=== PATIENT | female | born 1960 | race Hispanic/Latino ===

== ENCOUNTER 2018-09-18 11:49 | Outpatient (CLI) | payer OTHER | END 2018-09-18 11:50 | disposition home or self-care (01) | LOC: LABHHL 11:49 | PROVIDERS: ATTEND Surgery | DX: C50.911 Malignant neoplasm of unspecified site of right female breast (principal); N63.12 Unspecified lump in the right breast, upper inner quadrant | CPT/HCPCS: 88184; 88185; 88305 ==

== ENCOUNTER 2018-10-13 14:13 | Outpatient (CLI) | payer MEDICARE ==
--- NOTE | 2018-10-13 15:26 | Mammography Report ---
LEFT DIGITAL DIAGNOSTIC MAMMOGRAM with CAD: 10/13/18 14:13:00 CLINICAL: History of left breast cancer status post left partial mastectomy and status post right partial mastectomy with radiation therapy. Recent biopsy proven skin recurrence in the right breast. COMPARISON:01/07/12 FINDINGS: The breast is heterogeneously dense, which may obscure small masses.Inner posterior postsurgical scar with benign fat necrosis at the scar. Moderate skin thickening of the breast. No mass, suspicious architectural distortion or suspicious calcifications. IMPRESSION: No mammographic evidence of malignancy.Benign postsurgical scar and nonspecific skin thickening. BI-RADS CATEGORY: 2 - - Benign RECOMMENDATION: Routine mammographic screening. ACR BI-RADS MAMMOGRAPHIC CODES: 0 = Needs additional imaging evaluation; 1 = Negative; 2 = Benign; 3 = Probably benign; 4 = Suspicious; 5 = Malignant; 6 = Known biopsy-proven malignancy COMMENT: 1. Dense breast tissue, i.e., adenosis, fibrocystic changes, etc., may obscure an underlying neoplasm. 2. Approximately 10% of cancers are not detected with mammography. 3. A negative mammography report should not delay biopsy if a clinically suspicious mass is present. COMMENT: Patient follow-up letters are generated by our [employer] application.
== END 2018-10-13 14:14 | disposition home or self-care (01) ==
LOC: SPVWC 14:13
PROVIDERS: ATTEND Surgery
DX: C50.311 Malignant neoplasm of lower-inner quadrant of right female breast (principal); Z98.890 Other specified postprocedural states

== ENCOUNTER 2018-10-26 08:26 | Outpatient (CLI) | payer MEDICARE ==
--- NOTE | 2018-10-26 11:07 | Ultrasound Report ---
ABDOMINAL ULTRASOUND: 10/26/18 08:26:00 CLINICAL: Recurrent right breast cancer and abnormal liver on CT. FINDINGS: High-resolution ultrasound demonstrates normal size liver with moderate diffuse increased echogenicity. No liver mass. Normal hepatic vasculature and inferior vena cava. The gallbladder is normally distended. Sludge in the gallbladder neck but no stones. The gallbladder wall measures 1.8 mm. Normal bile ducts. The common bile duct measures 4.7 mm diameter. The pancreas is well imaged and normal Normal abdominal aorta. A normal spleen measures 10.0 cm maximum diameter. Normal kidneys with normal echogenicity and normal non-dilated renal collecting systems and ureters. The kidneys are relatively small but otherwise normal. The right kidney measures 7.7 x 4.1 x 5.2 m and the left kidney measures 9.7 x 4.9 x 3.6 cm. Normal renal echogenicity. No renal mass or calculus. No ascites or mass. IMPRESSION: 1. Hepatic steatosis. 2. No evidence of hepatic metastasis. 3. Gallbladder sludge but no cholelithiasis.
== END 2018-10-26 08:27 | disposition home or self-care (01) ==
LOC: SPVWC 08:26
PROVIDERS: ATTEND Surgery
DX: K76.0 Fatty (change of) liver, not elsewhere classified (principal); K83.9 Disease of biliary tract, unspecified; C50.211 Malignant neoplasm of upper-inner quadrant of right female breast
CPT/HCPCS: 76700

== ENCOUNTER 2018-10-26 14:48 | Outpatient (CLI) | payer MEDICARE | END 2018-10-26 14:49 | disposition home or self-care (01) | LOC: LABHHL 14:48 | PROVIDERS: ATTEND Surgery | DX: D23.9 Other benign neoplasm of skin, unspecified (principal); L90.5 Scar conditions and fibrosis of skin | CPT/HCPCS: 88305; 88342 ==

== ENCOUNTER 2018-11-16 08:27 | Observation (INO) | payer MEDICARE ==
[~2018-11-16 08:27] MED LIST: ANCEF/STERILE WATER 2 GM/20 ML 2 GM/20 ML SYRINGE IV NR
[2018-11-16] MEDS ORDERED: SUBLIMAZE IV ONE (10:23)
[2018-11-16] MEDS ORDERED: SUBLIMAZE ONE ×2 (10:46→12:39)
[2018-11-16] MEDS ORDERED: DIPRIVAN 10 MG/ML IV ONE (10:46)
--- NOTE | 2018-11-16 10:48 | Short Stay Summary ---
Short Stay Documentation Date of service: 11/16/18 - History H&P: obtained from office - Allergies and Medications Current Medications: Allergies iodine Allergy (Verified 11/13/18 18:36) Hives midazolam Allergy (Verified 11/13/18 18:36) Makes her act crazy and very hyper opposite affect Home Medications Medication Instructions Recorded Confirmed Last Taken Type ALBUTEROL Inhaler (OR & NICU) 2 puff INHALATION Q6H PRN 11/13/18 11/13/18 Unknown History [ProAir HFA Inhaler] Budesoni/Formotero 160-4.5(Nf) 2 puff IH BID 11/13/18 11/13/18 Unknown History [Symbicort 160-4.5 (Nf)] Buprenorphine [Butrans] 1 patch TRANSDERMA QWEEK 11/13/18 11/13/18 Unknown History Cefdinir 300 mg PO BID PRN 11/13/18 11/13/18 Unknown History Gabapentin [Neurontin] 400 mg PO TID PRN 11/13/18 11/13/18 Unknown History Gamunex-C 40 Gram/400 ml Vial 6 g IV 2XW 11/13/18 11/13/18 Unknown History Levothyroxine Sodium [Synthroid] 100 mcg PO QAM 11/13/18 11/13/18 Unknown History Metoprolol Xl [Metoprolol 50 mg PO DAILY 11/13/18 11/13/18 Unknown History SUCCINATE ER TAB] Oxycodone HCl/Acetaminophen 1 tab PO Q6H PRN 11/13/18 11/13/18 Unknown History Promethazine [Phenergan TAB] 25 mg PO BID PRN 11/13/18 11/13/18 Unknown History QUEtiapine [SEROquel] 25 mg PO DAILY 11/13/18 11/13/18 Unknown History Tiotropium [Spiriva] 18 mcg IH QDAY 11/13/18 11/13/18 Unknown History Topiramate [Topamax TAB] 50 mg PO BID PRN 11/13/18 11/13/18 Unknown History Warfarin Sodium 0.5 tab PO DAILY 11/13/18 11/13/18 Unknown History Active Medications Cefazolin Sodium (Ancef/Sterile Water 2 Gm/20 Ml) 2 gm in 20 mls @ 80 mls/hr IV PREOP NR; Protocol Stop: 11/16/18 23:31 Lactated Ringer's (Lactated Ringers) 1,000 mls @ 100 mls/hr IV DIRECT ARJUN Midazolam HCl (Versed) 2 mg IV PREOP NR Stop: 11/16/18 23:59 Scopolamine (Transderm-Scop) 1 each TD PREOP NR Stop: 11/19/18 10:59 - Brief post op/procedure progress note Date of procedure: 11/16/18 Pre-op diagnosis: Right breast cancer of the upper inner quadrant Post-op diagnosis: same Procedure: Bilateral mastectomy with attempted right SLNB Anesthesia: GETA Findings: Right breast clips present in specimen Surgeon: SARAH MATIAS Estimated blood loss: minimal Pathology: list (bilateral mastectomy; rigth SLNB) Specimen disposition: to lab Condition: stable - Disposition Condition at discharge: Good Disposition: DC/TX-02 SHRT-TRM GEN HOSP IP Short Stay Discharge Plan Activity: other (no heavy lifting) Diet: regular Wound: keep clean and dry Follow up with: ROBLES HARRELL MD [Primary Care Provider] - 7 Days SARAH MATIAS MD [Staff Physician] - 7 Days
[2018-11-16] MEDS ORDERED: PERCOCET 5/325 PO PRN (10:52)
[2018-11-16] MEDS ORDERED: BENADRYL PO PRN (10:52)
[2018-11-16] MEDS ORDERED: REGLAN PO PRN (10:52)
[2018-11-16] MEDS ORDERED: SODIUM CHLORIDE FLUSH SYRINGE 10 ML IV PRN (10:52)
[2018-11-16] MEDS ORDERED: TYLENOL PO PRN (10:52)
--- NOTE | 2018-11-16 10:52 | Operative Report ---
Operative Report Operative Report: Date of Service: November 16, 2018 Preoperative diagnosis: Right breast cancer of the upper outer and upper inner quadrants and NAC Postoperative diagnosis: Same Procedure: Right total mastectomy with attempted sentinel lymph node biopsy and left total mastectomy Surgeon: Luzma Osuna M.D. Anesthesia: Gen. Findings: Right breast clips present within right total mastectomy. No right axillary SLNs present Complications: None Drains: Two19 Fr CARLA Estimated blood loss: Minimal Disposition: PACU in good condition Indications for operative procedure: This is a 58-year-old lady with a personal history of bilateral breast cancer with newly diagnosed right breast cancer of the upper outer and upper inner quadrant and NAC; IDCA [id number] ER/MO positive (skin of the 2:00 position, breast cancer mass of NAC and 11:00 positoin 7 cm from the nipple). She has a history of bilateral breast cancer, right breast cancer in 1998 s/p right lumpectomy with ALND followed by XRT and adjuvant chemotherapy. She has a history of left breast cancer in 2012 s/p left partial mastectomy post adjuvant radation. Recommendations were to proceed with a right mastectomy given history of right breast cancer with adjuvant XRT. Patient declined PRS. She wished to proceed with the above procedure as well as a proph ylatic left mastectomy. Procedure in detail: Anesthesia placed bilateral pectoral muscle block prior to going to the operating room. The patient was taken to the operating room and was placed supine. Gen. anesthesia was administered. The right nipple was injected with radioisotope and 1 cc of methylene blue dye with 1 cc of saline. Bilateral breasts and axillas was prepped and draped in the normal sterile operative fashion. Timeout was performed. Typical mastectomy incision marking was made, right mastectomy including known cancer location. Attention was taken towards the left breast first. A skin incision was made with a 10 blade knife and dissection taken down to the subcutaneous tissues. First began raising of the superior flap to the level of the clavicle superiorly and posteriorly to the pectoralis muscle. Followed by raising of the medial flap to the level of the sternum and posteriorly to the pectoralis muscle. Followed by raising of the lateral flap to the level of the latissimus dorsi muscle and taken down posteriorly. Then proceeded with raising of the inferior flap to the level of the inframammary fold taken posterior to the pectoralis muscle. The mastectomy/breast was removed from the pectoralis muscle without incident. Mastectomy was noted for typical findings post XRT. The specimen was appropriately marked and sent to pathology. Hemostasis was noted. The chest wall was irrigated and suctioned. Hemostasis was obtained. One 19 [place] CARLA drain was placed. The subcutaneous tissues were closed using an interrupted 3-0 Vicryl followed by closing of the skin using a running 4-0 Monocryl and dermabond. The left port was noted and unharmed. Fibrotic tissue was noted from prior surgery and XRT. Attention was then taken towards the right breast. A gamma probe was inserted into the axilla to identify the sentinel lymph node location with no uptake noted. A skin incision was made with a 10 blade knife and dissection taken down to the subcutaneous tissues. First began raising of the superior flap to the level of the pacemaker (superior margin limited given location of pacer) and posteriorly to the pectoralis muscle. Followed by raising of the medial flap to the level of the sternum and posteriorly to the pectoralis muscle. Followed by raising of the lateral flap to the level of the latissimus dorsi muscle and taken down posteriorly. Scar tissue of the upper outer quadrant and lower breast. The gamma probe was inserted into the axilla with no uptake. The right axilla was noted for history of ALND with a clean dissection. Then proceeded with raising of the inferior flap to the level of the inframammary fold taken posterior to the pectoralis muscle. The mastectomy/breast was removed from the pectoralis muscle without incident. Mastectomy was noted for typical findings post XRT-fibrotic tissue. The specimen was appropriately marked and sent to radiology with findings of breast clips and microcalcifications present and sent to pathology. Hemostasis was noted. The chest wall was irrigated and suctioned. Hemostasis was obtained. One 19 [place] CARLA drain was placed. The subcutaneous tissues were closed using an interrupted 3-0 Vicryl followed by c losing of the skin using a running 4-0 Monocryl and dermabond. She tolerated surgery very well and was awaken from anesthesia and transported to PACU in good conidition.
[2018-11-16 10:55] LABS: INR 0.99 (0.87-1.13)
[2018-11-16 10:56] LABS: Partial Thromboplastin Time 27.5 Sec. (24.2-36.6)
[2018-11-16] MEDS ORDERED: NACL P/F VIAL (10 ML) 10 ML ONE (10:57)
[2018-11-16] MEDS ORDERED: DECADRON ONE (10:58)
[2018-11-16] MEDS ORDERED: METHYLENE BLUE ONE (10:58)
[2018-11-16] MEDS ORDERED: LACTATED RINGERS 1,000 ML IV SCH ×2 (11:00)
[2018-11-16] MEDS ORDERED: VERSED IV NR (11:00)
[2018-11-16] MEDS ORDERED: TRANSDERM-SCOP TD NR (11:00)
--- NOTE | 2018-11-16 11:34 | Anesthesia Consultation ---
Anesthesia Consult and Med Hx Date of service: 11/16/18 - Airway Anesthetic Teeth Evaluation: Poor ROM Head & Neck: Inadequate (normal ROM however neck and arm pain with full neck extension) Mental/Hyoid Distance: Adequate Mallampati Class: Class II Intubation Access Assessment: Possibly Difficult (reports possible hx difficult intubation w/ previous surgery) - Pulmonary Exam CTA: Yes - Cardiac Exam Cardiac Exam: RRR - Pre-Operative Health Status ASA Pre-Surgery Classification: ASA3 Proposed Anesthetic Plan: General Nerve Block: PEC - Pulmonary Hx Smoking: Yes (STOP CIG IN 08/2018 NOW USES ELECTRIC 8/DAY) Hx Asthma: Yes (used inhalers this morning) SOB: No Home Oxygen Therapy: No - Cardiovascular System Hx Hypertension: No Hx Heart Attack/AMI: No Hx Percutaneous Transluminal Coronary Angioplasty (PTCA): No Hx Cardia Arrhythmia: No Hx Pacemaker: Yes Hx Internal Defibrillator: Yes (Hx CHF EF 20% in 2013; EF 45-50% in 2018) - Central Nervous System Hx Seizures: No CVA: No Hx Back Pain: Yes (herniated cervical and lumbar discs w/ chronic pain) Hx Psychiatric Problems: Yes (anxiety/depression, bipolar) - Gastrointestinal Hx Gastroesophageal Reflux Disease: No - Endocrine Hx Renal Disease: No Hx Liver Disease: No Hx Insulin Dependent Diabetes: No Hx Non-Insulin Dependent Diabetes: No Hx Hypothyroidism: Yes - Hematic Hx Anemia: No - Other Systems Hx Cancer: Yes (breast Ca; nonhodgkins lymphoma) Hx Obesity: No - Additional Comments Anesthesia Medical History Comments: Hx PONV with prior anesthetics. Hx CHF after chemotherapy in 2013 with AICD placement, now improved to 45% on TTE in 2015 per cardiology notes on chart. Discussed AICD with cardiology clinic (who spoke with device rep) and advised OK to place magnet during surgery to deactivate anti-tachyarrythmic therapy. Device rep will see patient post op for interrogation prior to d/c. Also hx chronic pain with Butrans patch in place and took gabapentin and breakthrough percocet this morning. Baseline pain score 5/10. Will plan for pre-op PEC blocks, GA w/ LMA (difficult airway equipment avilable) with avoidance of significant neck manipulation.
--- NOTE | 2018-11-16 11:34 | Anesthesia Day of Surgery ---
Anesthesia Day of Surgery - Day of Surgery Patient Examined: Yes Patient H&P Reviewed: Yes Patient is NPO: Yes Beta Blockers: Yes Cardiac Clearance: Yes
[2018-11-16] MEDS ORDERED: DEMEROL IV PRN (11:35)
[2018-11-16] MEDS ORDERED: METHYLENE BLUE IRRIGATION ONE (11:44)
[2018-11-16] MEDS ORDERED: KETALAR ONE (11:44)
[2018-11-16] MEDS ORDERED: WATER FOR IRRIG STERILE IR ONE (12:17)
[2018-11-16] MEDS ORDERED: MORPHINE IV PRN (14:30)
[2018-11-16] MEDS ORDERED: PROAIR IH PRN (14:32)
[2018-11-16] MEDS ORDERED: PROVENTIL IH PRN (14:39)
[2018-11-16] MEDS ORDERED: XYLOCAINE CARDIAC IV ONE (14:41)
[2018-11-16] MEDS: DILAUDID IV PRN ×2 (15:22→15:30)
--- NOTE | 2018-11-16 17:13 | Post Anesthesia Evaluation ---
- Post Anesthesia Evaluation Patient Participated: Yes Airway Patent: Yes Stable Respiratory Function: Yes Nausea/Vomiting: No Temp > 96.8F: Yes Pain Manageable: Yes Adequeate Hydration: Yes Anesthesia Complications: No
[2018-11-16] MEDS: ZOFRAN IV PRN (17:26)
[2018-11-16] MEDS: PERCOCET 5/325 PO PRN ×2 (18:35→23:41)
[2018-11-16] MEDS: PULMICORT IH SCH (20:43)
[2018-11-16] MEDS: BROVANA NEBU IH SCH (20:43)
[2018-11-16] MEDS ORDERED: NON-FORMULARY (Budesoni/Formotero 160-4.5(Nf) 2 PUFF) IH SCH (22:00)
[2018-11-16] MEDS: COLACE PO SCH (23:42)
[2018-11-17] MEDS: ZOFRAN IV PRN ×2 (01:50→10:24)
[2018-11-17] MEDS: PERCOCET 5/325 PO PRN ×2 (05:48→10:22)
[2018-11-17] MEDS: BROVANA NEBU IH SCH (07:54)
[2018-11-17] MEDS: PULMICORT IH SCH (07:54)
--- NOTE | 2018-11-17 08:13 | Progress Note ---
Assessment and Plan This is a 58 year old lady with a personal history of bilateral breast cancer and newly diagnosed right breast cancer POD#1 bilateral mastectomy. 1. No acute events overnight. 2. Pain in good control. 3. Bilateral chest incisions healing well, right lateral incision with some bruising noted, skin perfused. 4. OOB to hallway. 5. D/C planning. Subjective Date of service: 11/17/18 Principal diagnosis: Right breast cancer Interval history: Right breast cancer, POD#1 bilateral mastectomy Objective - Constitutional Vitals: Vital Signs - 12hr 11/16/18 11/16/18 11/16/18 20:43 20:55 21:00 Temperature 97.8 F Pulse Rate 80 Pulse Rate [ 80 Anterior Bilateral Upper Lobe] Pulse Rate [ Bilateral Throughout] Respiratory 16 Rate Respiratory 18 18 Rate [Anterior Bilateral Upper Lobe] Respiratory Rate [Bilateral Throughout] Blood Pressure 118/67 [Left] O2 Sat by Pulse 97 Oximetry 11/17/18 11/17/18 11/17/18 01:45 05:30 07:54 Temperature 98.4 F 97.9 F Pulse Rate 68 74 Pulse Rate [ Anterior Bilateral Upper Lobe] Pulse Rate [ 80 Bilateral Throughout] Respiratory 16 16 Rate Respiratory Rate [Anterior Bilateral Upper Lobe] Respiratory 16 Rate [Bilateral Throughout] Blood Pressure 139/69 122/69 [Left] O2 Sat by Pulse 93 93 Oximetry 11/17/18 08:05 Temperature Pulse Rate Pulse Rate [ Anterior Bilateral Upper Lobe] Pulse Rate [ 74 Bilateral Throughout] Respiratory Rate Respiratory Rate [Anterior Bilateral Upper Lobe] Respiratory 16 Rate [Bilateral Throughout] Blood Pressure [Left] O2 Sat by Pulse Oximetry General appearance: Present: no acute distress - EENT Eyes: PERRL, EOM intact ENT: hearing intact Ears: bilateral: normal - Neck Neck: supple, normal ROM - Respiratory Respiratory effort: normal Respiratory: bilateral: CTA - Breasts Breasts: other (incision c/d/i; skin well perfused; some bruising of right lateral incision; CARLA drains to bulb suction) - Cardiovascular Rhythm: regular Extremities: no ischemia, pulses intact, pulses symmetrical, No edema, normal temperature, normal color, Full ROM - Gastrointestinal General gastrointestinal: Present: soft, non-tender, non-distended Rectal Exam: deferred - Genitourinary Female genitourinary: deferred - Integumentary Integumentary: clear, warm, dry - Musculoskeletal Musculoskeletal: strength equal bilaterally - Neurologic Neurologic: CNII-XII intact - Psychiatric Psychiatric: appropriate mood/affect, intact judgment & insight, memory intact, cooperative Medications & Allergies - Medications Allergies/Adverse Reactions: Allergies iodine Allergy (Verified 11/13/18 18:36) Hives midazolam Allergy (Verified 11/13/18 18:36) Makes her act crazy and very hyper opposite affect Home Medications: Home Medications Medication Instructions Recorded Confirmed Last Taken Type ALBUTEROL Inhaler (OR & NICU) 2 puff INHALATION Q6H PRN 11/13/18 11/16/18 11/15/18 20:00 History [ProAir HFA Inhaler] Budesoni/Formotero 160-4.5(Nf) 2 puff IH BID 11/13/18 11/16/18 11/15/18 19:00 History [Symbicort 160-4.5 (Nf)] Buprenorphine [Butrans] 1 patch TRANSDERMA QWEEK 11/13/18 11/13/18 Unknown History Cefdinir 300 mg PO BID PRN 11/13/18 11/13/18 Unknown History Gabapentin [Neurontin] 400 mg PO TID PRN 11/13/18 11/16/18 11/16/18 05:45 History Gamunex-C 40 Gram/400 ml Vial 6 g IV 2XW 11/13/18 11/13/18 Unknown History Levothyroxine Sodium [Synthroid] 100 mcg PO QAM 11/13/18 11/16/18 11/16/18 05:45 History Metoprolol Xl [Metoprolol 50 mg PO DAILY 11/13/18 11/16/18 11/15/18 20:00 History SUCCINATE ER TAB] Oxycodone HCl/Acetaminophen 1 tab PO Q6H PRN 11/13/18 11/13/18 Unknown History Promethazine [Phenergan TAB] 25 mg PO BID PRN 11/13/18 11/13/18 Unknown History QUEtiapine [SEROquel] 25 mg PO DAILY 11/13/18 11/16/18 11/15/18 09:00 History Tiotropium [Spiriva] 18 mcg IH QDAY 11/13/18 11/16/18 11/15/18 09:00 History Topiramate [Topamax TAB] 50 mg PO BID PRN 11/13/18 11/13/18 Unknown History Warfarin Sodium 0.5 tab PO DAILY 11/13/18 11/16/18 11/13/18 09:00 History HYDROcodone/APAP 5-325 [[place] 1 each PO Q6HR PRN #30 tablet 11/17/18 Unknown Rx 5/325] Active Medications: Generic Name Dose Route Start Last Admin Trade Name Freq PRN Reason Stop Dose Admin Acetaminophen 650 mg 11/16/18 10:52 Tylenol PO Q6H PRN Pain MILD(1-3)/Fever >100.5/WALKER Albuterol 2.5 mg 11/16/18 14:39 Proventil IH Q6HRT PRN Wheezing Arformoterol Tartrate 15 mcg 11/16/18 20:00 11/17/18 07:54 Brovana Nebu IH 15 mcg Q12HRT ARJUN Administration Budesonide 0.5 mg 11/16/18 20:00 11/17/18 07:54 Pulmicort IH 0.5 mg Q12HRT ARJUN Administration Cephalexin 500 mg 11/17/18 10:00 Keflex PO Q12HR ARJUN Diphenhydramine HCl 25 mg 11/16/18 10:52 Benadryl PO Q8H PRN Itching Docusate Sodium 100 mg 11/16/18 22:00 11/16/18 23:42 Colace PO 100 mg BID ARJUN Administration Lactated Ringer's 1,000 mls @ 125 mls/hr 11/16/18 11:00 11/16/18 20:15 Lactated Ringers IV 125 mls/hr DIRECT ARJUN Administration Meperidine HCl 25 mg 11/16/18 11:35 Demerol IV ONCE PRN Shivering Metoclopramide HCl 10 mg 11/16/18 10:52 Reglan PO Q6H PRN Nausea And Vomiting Morphine Sulfate 2 mg 11/16/18 14:30 11/16/18 17:31 Morphine IV 2 mg Q4H PRN Administration Pain, Moderate (4-6) Nitroglycerin 1 inch 11/17/18 08:08 Nitro-Bid 2% TP 11/17/18 08:09 ONCE ONE Protocol Ondansetron HCl 4 mg 11/16/18 10:52 11/17/18 01:50 Zofran IV 4 mg Q8H PRN Administration N/V unrelieved by Leonor Oxycodone/Acetaminophen 1 tab 11/16/18 10:52 11/16/18 18:34 Percocet 5/325 PO 1 tab Q6H PRN Administration Pain, Moderate (4-6) Oxycodone/Acetaminophen 2 tab 11/16/18 18:43 11/17/18 05:48 Percocet 5/325 PO 2 tab Q6H PRN Administration Pain, Moderate (4-6) Scopolamine 1 each 11/16/18 11:00 11/16/18 10:50 Transderm-Scop TD 11/19/18 10:59 1 each PREOP NR Administration Sodium Chloride 10 ml 11/16/18 10:52 Sodium Chloride Flush Syringe 10 Ml IV PRN PRN LINE FLUSH
[2018-11-17] MEDS ORDERED: KEFLEX PO SCH (10:00)
[2018-11-17] MEDS ORDERED: NITRO-BID 2% TP ONE (10:00)
[2018-11-17] MEDS: COLACE PO SCH (10:22)
[2018-11-17 13:14] VITALS: BP 116/58
--- NOTE | 2018-11-18 08:45 | Mammography Report ---
SPECIMEN RADIOGRAPH RIGHT BREAST: 11/16/18 10:52:00 CLINICAL: Right mastectomy specimen FINDINGS: 2 biopsy clips are identified within the specimen and correlate with known cancers.
== END 2018-11-17 13:57 | disposition short-term general hospital (02) ==
LOC: OR 08:27 → OB 10:52
PROVIDERS: ADMIT Surgery; ATTEND Surgery
DX: C50.919 Malignant neoplasm of unspecified site of unspecified female breast (principal); C50.912 Malignant neoplasm of unspecified site of left female breast
CPT/HCPCS: 19303; 36415; 76098; 78800; 85610; 85730; 88307; 88342; 94640; 96374; 96375; 96376; A9541; G0378; J0690; J1100; J1170; J2001; J2250; J2270; J2405; J2704; J3010; J7120; Q9968; 88341

== ENCOUNTER 2019-01-06 12:52 | Outpatient (CLI) | payer MEDICARE ==
--- NOTE | 2019-01-06 15:53 | Vascular Lab Report ---
PROCEDURE: VL VENOUS DUPLEX LE BILAT TECHNIQUE: Grayscale and color and spectral Doppler ultrasound imaging of the bilateral lower extrem ity venous systems was performed. HISTORY: BILATREAL DVT STUDY, PAIN IN LEGS COMPARISONS: None. FINDINGS: Right lower extremity: No evidence of right lower extremity DVT. Normal color flow, compressibility a nd augmentation was seen. No soft tissue abnormality. Left lower extremity: Nonocclusive, chronic thrombus is seen within the left common femoral, proximal superficial femoral and posterior tibial veins. Occlusive DVT is seen within the left mid superficia l femoral, popliteal and proximal peroneal veins. IMPRESSION: 1. Acute and chronic left lower extremity DVT. 2. Negative for right lower extremity DVT. This document is electronically signed by Enedina Almanza., January 06 2019 03:51:01 PM ET
--- NOTE | 2019-01-06 16:29 | Vascular Lab Report ---
PROCEDURE: VL AO/IVC/ILIAC DUPLEX LTD HISTORY: HX DVT FINDINGS: Real-time ultrasound of the abdomen was performed using grayscale and color Doppler images, with attention to the venous vasculature. No evidence of venous thrombosis seen in the inferior vena cava, common iliac veins or external iliac veins. IMPRESSION: No DVT is seen in the inferior vena cava, common iliac veins or external iliac veins This document is electronically signed by Sami Reddy MD., January 06 2019 04:28:07 PM ET
== END 2019-01-06 12:53 | disposition home or self-care (01) ==
LOC: US 12:52
PROVIDERS: ATTEND Radiology Diagnostic Radiology
DX: I82.502 Chronic embolism and thrombosis of unspecified deep veins of left lower extremity (principal); M79.604 Pain in right leg; J45.909 Unspecified asthma, uncomplicated
CPT/HCPCS: 93970; 93979

== ENCOUNTER 2019-02-08 06:30 | Inpatient (IN) | payer MEDICARE ==
[2019-02-08] MEDS ORDERED: NACL 0.9% 1000 ML 1,000 ML IV SCH (07:00)
[2019-02-08] MEDS ORDERED: NACL 0.9% 1000 ML 1,000 ML ONE (07:15)
[2019-02-08 07:19] LABS: Basophils # (Auto) 0.1 K/mm3 (0.0-0.1); Basophils % (Auto) 1.2 % (0.0-1.8); Eosinophils # (Auto) 0.5 K/mm3 (0.0-0.4); Eosinophils % (Auto) 5.6 % (0.0-4.3); Hematocrit 46.9 % (30.3-42.9); Hemoglobin 15.9 gm/dl (10.1-14.3); Lymphocytes % (Auto) 42.8 % (13.4-35.0); Mean Corpuscular HGB Conc 34 % (30-34); Mean Corpuscular Volume 91 fl (79-97); Monocytes # (Auto) 0.6 K/mm3 (0.0-0.8); Monocytes % (Auto) 6.5 % (0.0-7.3); Platelet Count 376 K/mm3 (140-440); Red Blood Count 5.15 M/mm3 (3.65-5.03)
[2019-02-08 07:31] LABS: INR 1.14 (0.87-1.13); Partial Thromboplastin Time 33.3 Sec. (24.2-36.6)
--- NOTE | 2019-02-08 07:33 | Anesthesia Consultation ---
Anesthesia Consult and Med Hx Date of service: 02/08/19 - Airway Anesthetic Teeth Evaluation: Poor (multiple broken off teeth, missing teeth ) ROM Head & Neck: Adequate Mental/Hyoid Distance: Adequate Mallampati Class: Class II Intubation Access Assessment: Probably Good - Pre-Operative Health Status ASA Pre-Surgery Classification: ASA3 Proposed Anesthetic Plan: MAC - Pulmonary Hx Smoking: Yes (STOP CIG IN 08/2018 NOW USES ELECTRIC 8/DAY) Hx Asthma: Yes (used inhalers this morning) SOB: No COPD: No Hx Pneumonia: No - Cardiovascular System Hx Hypertension: No Hx Heart Attack/AMI: No Hx Percutaneous Transluminal Coronary Angioplasty (PTCA): No Hx Cardia Arrhythmia: No Hx Pacemaker: Yes Hx Internal Defibrillator: Yes (Hx CHF EF 20% in 2013; EF 45-50% in 2018) - Central Nervous System Hx Seizures: No CVA: No Hx Back Pain: Yes (herniated cervical and lumbar discs w/ chronic pain) Hx Psychiatric Problems: Yes (anxiety/depression, bipolar) - Gastrointestinal Hx Gastroesophageal Reflux Disease: No - Endocrine Hx Renal Disease: No Hx End Stage Renal Disease: No Hx Liver Disease: No Hx Insulin Dependent Diabetes: No Hx Non-Insulin Dependent Diabetes: No Hx Hypothyroidism: Yes - Hematic Hx Anemia: No - Other Systems Hx Alcohol Use: No Hx Substance Use: No Hx Cancer: Yes (breast Ca; nonhodgkins lymphoma) Hx Obesity: No
--- NOTE | 2019-02-08 07:34 | Anesthesia Day of Surgery ---
Anesthesia Day of Surgery - Day of Surgery Patient Examined: Yes Patient H&P Reviewed: Yes Patient is NPO: Yes Beta Blockers: Yes
[2019-02-08 07:45] LABS: BUN/Creatinine Ratio 9; Blood Urea Nitrogen 6 mg/dL (7-17); Calcium 9.7 mg/dL (8.4-10.2); Hemolysis Index 14
[2019-02-08] MEDS ORDERED: DILAUDID ONE (07:49)
[2019-02-08] MEDS ORDERED: XYLOCAINE MPF 2% ONE (07:50)
[2019-02-08] MEDS ORDERED: DIPRIVAN 10 MG/ML IV ONE ×2 (07:50)
[2019-02-08] MEDS ORDERED: XYLOCAINE 2% INFILTRATI ONE (08:08)
[2019-02-08] MEDS ORDERED: HEPARIN/NS 5000 UNIT/500ML(CATH LAB) 500 ML IR ONE (08:08)
[2019-02-08] MEDS ORDERED: BENADRYL ONE (08:13)
--- NOTE | 2019-02-08 08:20 | Short Stay Summary ---
Short Stay Documentation Date of service: 02/08/19 - History Principal diagnosis: DVT, Breast cancer Past Medical History: cancer, DVT Past Surgical History: Other (breast surgery) Social history: lives with family, smoking - Allergies and Medications Current Medications: Allergies iodine Allergy (Verified 11/13/18 18:36) Hives midazolam Allergy (Verified 11/13/18 18:36) Makes her act crazy and very hyper opposite affect Home Medications Medication Instructions Recorded Confirmed Last Taken Type ALBUTEROL Inhaler (OR & NICU) 2 puff INHALATION Q6H PRN 11/13/18 11/16/18 11/15/18 20:00 History [ProAir HFA Inhaler] Budesoni/Formotero 160-4.5(Nf) 2 puff IH BID 11/13/18 11/16/18 11/15/18 19:00 History [Symbicort 160-4.5 (Nf)] Buprenorphine [Butrans] 1 patch TRANSDERMA QWEEK 11/13/18 02/08/19 02/08/19 07:33 History Cefdinir 300 mg PO BID PRN 11/13/18 11/13/18 2 Days Ago History ~02/06/19 Gabapentin [Neurontin] 400 mg PO TID PRN 11/13/18 11/16/18 02/08/19 06:00 History Gamunex-C 40 Gram/400 ml Vial 6 g IV 2XW 11/13/18 11/13/18 02/05/19 07:35 History Levothyroxine Sodium [Synthroid] 100 mcg PO QAM 11/13/18 11/16/18 02/08/19 03:00 History Metoprolol Xl [Metoprolol 50 mg PO DAILY 11/13/18 11/16/18 1 Day Ago History SUCCINATE ER TAB] ~02/07/19 Oxycodone HCl/Acetaminophen 1 tab PO Q6H PRN 11/13/18 11/13/18 02/08/19 03:00 History Promethazine [Phenergan] 25 mg PO BID PRN 11/13/18 11/13/18 02/05/19 07:39 History QUEtiapine [SEROquel] 25 mg PO DAILY 11/13/18 11/16/18 1 Day Ago History ~02/07/19 Tiotropium [Spiriva] 18 mcg IH QDAY 11/13/18 11/16/18 11/15/18 09:00 History Topiramate [Topamax TAB] 50 mg PO BID PRN 11/13/18 11/13/18 1 Week Ago History ~02/01/19 HYDROcodone/APAP 5-325 [[place] 1 each PO Q6HR PRN #30 tablet 11/17/18 Unknown Rx 5/325] Apixaban [Eliquis] 5 mg PO Q12HR 02/08/19 02/08/19 02/08/19 03:00 History Buprenorphine [Butrans] 02/08/19 02/05/19 07:44 History Active Medications Diphenhydramine HCl (Benadryl) 25 mg IV ONCE ONE Stop: 02/08/19 08:17 Sodium Chloride (Nacl 0.9% 1000 Ml) 1,000 mls @ 42 mls/hr IV DIRECT ARJUN Last Admin: 02/08/19 07:49 Dose: 42 mls/hr Documented by: - Physical exam General appearance: no acute distress Integumentary: no rash, no growths HEENT: Atraumatic Lungs: Normal air movement Breasts: deferred Heart: Regular rate Gastrointestinal: normal Female Genitourinary: deferred Rectal Exam: deferred Extremities: Full ROM Neurological: Normal gait, Normal speech - Brief post op/procedure progress note Date of procedure: 02/09/19 Pre-op diagnosis: DVT, breast cancer Post-op diagnosis: same Procedure: IVC filter placement Anesthesia: local Surgeon: NELSON DONG Estimated blood loss: minimal Pathology: none Condition: stable - Disposition Condition at discharge: Good Disposition: [id number]-TRM GEN HOSP IP Short Stay Discharge Plan Activity: advance as tolerated Weight Bearing Status: Weight Bear as Tolerated Diet: regular Wound: keep clean and dry, per your surgeon's advice Follow up with: ROBLES HARRELL MD [Primary Care Provider] - 7 Days
[2019-02-08] MEDS ORDERED: BENADRYL IV ONE (08:30)
[2019-02-08] MEDS ORDERED: HEPARIN/ 0.45% NACL-25,000 UNIT/500 ML 25,000 UNIT/500 ML BAG IV SCH (09:00)
[2019-02-08] MEDS ORDERED: PERCOCET 5/325 ONE (10:05)
[2019-02-08] MEDS ORDERED: PERCOCET 5/325 PO ONE (10:30)
[2019-02-08] MEDS ORDERED: SODIUM CHLORIDE FLUSH SYRINGE 10 ML IV PRN (10:33)
[2019-02-08] MEDS ORDERED: TYLENOL PO PRN (10:33)
[2019-02-08] MEDS: PERCOCET 5/325 PO PRN ×2 (15:42→21:50)
[2019-02-08] MEDS ORDERED: PROAIR IH PRN (16:08)
[2019-02-08] MEDS ORDERED: NON-FORMULARY (Topiramate [Topamax Tab] 50 MG) PO PRN (16:08)
[2019-02-08] MEDS ORDERED: TOPAMAX PO PRN (16:25)
[2019-02-08] MEDS ORDERED: PROVENTIL IH PRN (16:32)
[2019-02-08] MEDS: BROVANA NEBU IH SCH (20:45)
[2019-02-08] MEDS: PULMICORT IH SCH (20:45)
[2019-02-08] MEDS: LOVENOX SUB-Q SCH (21:48)
[2019-02-08] MEDS ORDERED: NON-FORMULARY (Budesoni/Formotero 160-4.5(Nf) 2 PUFF) IH SCH (22:00)
[2019-02-08] MEDS ORDERED: COLACE PO SCH (22:00)
[2019-02-08] MEDS ORDERED: TOPROL XL PO SCH (22:40)
[2019-02-09] MEDS: PERCOCET 5/325 PO PRN ×2 (03:35→11:02)
[2019-02-09] MEDS ORDERED: SYNTHROID PO SCH (06:00)
--- NOTE | 2019-02-09 08:08 | Operative Report ---
Operative Report Operative Report: Exam: Ultrasound and fluoroscopic guided placement of IVC filter Clinical indication: Patient with a history of multiple prior DVTs, patient with breast cancer requiring surgery Date: 02/09/2019 Procedure: Following an explanation of the risks, benefits and alternatives; written informed consent was obtained. The patient was brought to the angiographic suite and placed in supine position on the examination table. Initial ultrasound evaluation of her right groin demonstrated a patent right common femoral vein. The patient's right groin was prepped and draped in the usual sterile fashion. 1% lidocaine was used for anesthesia. Under ultrasound guidance, the right common femoral vein was cannulated with a 7 cm 18-gauge needle. A 0.035 guidewire was advanced centrally. The needle was removed and a 10 [place] sheath placed. Intravascular ultrasound catheter was then advanced over the guidewire through the sheath. Imaging was obtained from the intrahepatic IVC to the sheath insertion site. The level of the lowest renal vein was identified at the inferior endplate of L2. The IVC is patent and appropriate size criteria is met. The intravascular ultrasound catheter was removed. The 10 [place] sheath was removed and the IVC filter introducer sheath and trocar were then advanced over the guidewire. The trocar and guidewire were removed and a [place] IVC filter was then advanced through the sheath to position the tip at the inferior endplate of L2. The IVC filter was deployed. Postoperative imaging demonstrated satisfactory positioning with no significant tilt. The sheath was removed and hemostasis achieved using manual compression. A sterile dressing was applied. The patient tolerated the procedure well. There were no immediate post procedure complications. Sedation was provided by anesthesia services. Continuous cardiopulmonary monitoring was utilized. Impression: 1) Ultrasound and fluoroscopic guided placement of IVC filter. 2) Anatomic imaging was obtained through the use of intravascular ultrasound in the IVC given the patient's contrast allergy. No contrast was used during this examination.
[2019-02-09] MEDS: BROVANA NEBU IH SCH (09:24)
[2019-02-09] MEDS: PULMICORT IH SCH (09:24)
[2019-02-09] MEDS ORDERED: SPIRIVA IH SCH (10:00)
[2019-02-09] MEDS ORDERED: TOPROL XL PO SCH (10:00)
--- NOTE | 2019-02-09 10:03 | Progress Note ---
Assessment and Plan Patient doing well status post IVC filter placement. Plan on removal in 2-3 months following patient surgery and recovery. Subjective Date of service: 02/09/19 Principal diagnosis: DVT, Breast cancer Interval history: Patient status post IVC filter placement. Compression dressing removed. No significant bleeding or hematoma. Her groin is soft. The patient does complain of upper respiratory symptoms as well as nausea. Objective - Constitutional Vitals: Vital Signs - 12hr 02/08/19 02/09/19 02/09/19 23:04 00:40 05:50 Temperature 98.8 F 97.9 F Pulse Rate 66 93 H 63 Respiratory 20 20 Rate Blood Pressure 119/63 Blood Pressure 128/56 136/49 [Left] O2 Sat by Pulse 98 95 Oximetry 02/09/19 08:47 Temperature 98.3 F Pulse Rate 60 Respiratory 20 Rate Blood Pressure 140/54 Blood Pressure [Left] O2 Sat by Pulse 96 Oximetry General appearance: Present: no acute distress - EENT Eyes: EOM intact ENT: hearing intact - Neck Neck: supple - Respiratory Respiratory effort: normal Extremities: no ischemia Extremity abnormal: edema - Gastrointestinal General gastrointestinal: Present: deferred Rectal Exam: deferred - Genitourinary Female genitourinary: deferred - Psychiatric Psychiatric: cooperative - Labs CBC & Chem 7: 02/08/19 07:08 02/08/19 07:08 Medications & Allergies - Medications Allergies/Adverse Reactions: Allergies iodine Allergy (Verified 11/13/18 18:36) Hives midazolam Allergy (Verified 11/13/18 18:36) Makes her act crazy and very hyper opposite affect Home Medications: Home Medications Medication Instructions Recorded Confirmed Last Taken Type ALBUTEROL Inhaler (OR & NICU) 2 puff INHALATION Q6H PRN 11/13/18 11/16/18 11/15/18 20:00 History [ProAir HFA Inhaler] Budesoni/Formotero 160-4.5(Nf) 2 puff IH BID 11/13/18 11/16/18 11/15/18 19:00 History [Symbicort 160-4.5 (Nf)] Buprenorphine [Butrans] 1 patch TRANSDERMA QWEEK 11/13/18 02/08/19 02/08/19 07:33 History Cefdinir 300 mg PO BID PRN 11/13/18 11/13/18 2 Days Ago History ~05/18/19 Gabapentin [Neurontin] 400 mg PO TID PRN 11/13/18 11/16/18 02/08/19 06:00 History Gamunex-C 40 Gram/400 ml Vial 6 g IV 2XW 11/13/18 11/13/18 02/05/19 07:35 History Levothyroxine Sodium [Synthroid] 100 mcg PO QAM 11/13/18 11/16/18 02/08/19 03:00 History Metoprolol Xl [Metoprolol 50 mg PO DAILY 11/13/18 11/16/18 1 Day Ago History SUCCINATE ER TAB] ~02/07/19 Oxycodone HCl/Acetaminophen 1 tab PO Q6H PRN 11/13/18 11/13/18 02/08/19 03:00 History Promethazine [Phenergan] 25 mg PO BID PRN 11/13/18 11/13/18 02/05/19 07:39 History QUEtiapine [SEROquel] 25 mg PO DAILY 11/13/18 11/16/18 1 Day Ago History ~02/07/19 Tiotropium [Spiriva] 18 mcg IH QDAY 11/13/18 11/16/18 11/15/18 09:00 History Topiramate [Topamax TAB] 50 mg PO BID PRN 11/13/18 11/13/18 1 Week Ago History ~02/01/19 HYDROcodone/APAP 5-325 [[place] 1 each PO Q6HR PRN #30 tablet 11/17/18 Unknown Rx 5/325] Apixaban [Eliquis] 5 mg PO Q12HR 02/08/19 02/08/19 02/08/19 03:00 History Buprenorphine [Butrans] 02/08/19 02/05/19 07:44 History Active Medications: Generic Name Dose Route Start Last Admin Trade Name Freq PRN Reason Stop Dose Admin Acetaminophen 650 mg 02/08/19 10:33 Tylenol PO Q6H PRN Pain MILD(1-3)/Fever >100.5/WALKER Albuterol 2.5 mg 02/08/19 16:32 Proventil IH Q6HRT PRN Wheezing Arformoterol Tartrate 15 mcg 02/08/19 20:00 02/09/19 09:24 Brovana Nebu IH Not Given Q12HRT ARJUN Budesonide 0.5 mg 02/08/19 20:00 02/09/19 09:24 Pulmicort IH Not Given Q12HRT ARJUN Docusate Sodium 100 mg 02/08/19 22:00 02/08/19 21:48 Colace PO 100 mg BID ARJUN Administration Enoxaparin Sodium 40 mg 02/08/19 22:00 02/08/19 21:48 Lovenox SUB-Q 02/09/19 20:00 40 mg BID ARJUN Administration Sodium Chloride 1,000 mls @ 42 mls/hr 02/08/19 07:00 02/08/19 07:49 Nacl 0.9% 1000 Ml IV 42 mls/hr DIRECT ARJUN Administration Levothyroxine Sodium 100 mcg 02/09/19 06:00 Synthroid PO DAILY@0600 ARJUN Metoprolol Succinate 50 mg 02/08/19 22:40 02/08/19 23:04 Toprol Xl PO 50 mg QDAY ARJUN Administration Oxycodone/Acetaminophen 1 tab 02/08/19 15:30 02/09/19 03:35 Percocet 5/325 PO 1 tab Q6H PRN Administration Pain, Moderate (4-6) Quetiapine Fumarate 25 mg 02/08/19 22:45 02/08/19 23:08 Seroquel PO 25 mg BID ARJUN Administration Sodium Chloride 10 ml 02/08/19 10:33 Sodium Chloride Flush Syringe 10 Ml IV PRN PRN LINE FLUSH Tiotropium [place] 1 puff 02/09/19 10:00 02/09/19 09:24 Spiriva IH Not Given QDAY ARJUN Topiramate 50 mg 02/08/19 16:25 Topamax PO Q12HR PRN MIGRANES
[2019-02-09] MEDS: LOVENOX SUB-Q SCH (10:57)
[2019-02-09 13:23] VITALS: BP 136/65
--- NOTE | 2019-02-09 13:59 | Progress Note ---
Assessment and Plan This is a 58 year old lady with history of bilateral breast cancer. Patient admitted for IVC filter yesterday and she's scheduled for surgery tomorrow for left port removal, left mastectomy margin revision and possible ALND. Right groin dressing intact from IVC filter. Patient consented. Subjective Date of service: 02/09/19 Principal diagnosis: DVT, Breast cancer Interval history: Bilateral breast cancer s/p IVC filter Objective - Constitutional Vitals: Vital Signs - 12hr 02/09/19 02/09/19 02/09/19 05:50 08:47 12:20 Temperature 97.9 F 98.3 F 98.6 F Pulse Rate 63 60 64 Respiratory 20 20 20 Rate Blood Pressure 140/54 136/65 Blood Pressure 136/49 [Left] O2 Sat by Pulse 95 96 95 Oximetry General appearance: Present: no acute distress - EENT Eyes: PERRL, EOM intact ENT: hearing intact Ears: bilateral: normal - Neck Neck: supple, normal ROM - Respiratory Respiratory effort: normal Respiratory: bilateral: CTA - Breasts Breasts: other (bilateral chest incisions well healed) - Cardiovascular Rhythm: regular Extremities: no ischemia, pulses intact, pulses symmetrical, No edema, normal temperature, normal color, Full ROM - Gastrointestinal General gastrointestinal: Present: soft, non-tender, non-distended Rectal Exam: deferred - Genitourinary Female genitourinary: deferred - Integumentary Integumentary: clear, warm, dry - Musculoskeletal Musculoskeletal: strength equal bilaterally - Neurologic Neurologic: CNII-XII intact, focal deficits, moves all extremities - Psychiatric Psychiatric: appropriate mood/affect, intact judgment & insight, memory intact, cooperative - Labs CBC & Chem 7: 02/08/19 07:08 02/08/19 07:08 Medications & Allergies - Medications Allergies/Adverse Reactions: Allergies iodine Allergy (Verified 11/13/18 18:36) Hives midazolam Allergy (Verified 11/13/18 18:36) Makes her act crazy and very hyper opposite affect Home Medications: Home Medications Medication Instructions Recorded Confirmed Last Taken Type ALBUTEROL Inhaler (OR & NICU) 2 puff INHALATION Q6H PRN 11/13/18 11/16/18 11/15/18 20:00 History [ProAir HFA Inhaler] Budesoni/Formotero 160-4.5(Nf) 2 puff IH BID 11/13/18 11/16/18 11/15/18 19:00 History [Symbicort 160-4.5 (Nf)] Buprenorphine [Butrans] 1 patch TRANSDERMA QWEEK 11/13/18 02/08/19 02/08/19 07:33 History Cefdinir 300 mg PO BID PRN 11/13/18 11/13/18 2 Days Ago History ~02/06/19 Gabapentin [Neurontin] 400 mg PO TID PRN 11/13/18 11/16/18 02/08/19 06:00 History Gamunex-C 40 Gram/400 ml Vial 6 g IV 2XW 11/13/18 11/13/18 02/05/19 07:35 History Levothyroxine Sodium [Synthroid] 100 mcg PO QAM 11/13/18 11/16/18 02/08/19 03:00 History Metoprolol Xl [Metoprolol 50 mg PO DAILY 11/13/18 11/16/18 1 Day Ago History SUCCINATE ER TAB] ~02/07/19 Oxycodone HCl/Acetaminophen 1 tab PO Q6H PRN 11/13/18 11/13/18 02/08/19 03:00 History Promethazine [Phenergan] 25 mg PO BID PRN 11/13/18 11/13/18 02/05/19 07:39 History QUEtiapine [SEROquel] 25 mg PO DAILY 11/13/18 11/16/18 1 Day Ago History ~02/07/19 Tiotropium [Spiriva] 18 mcg IH QDAY 11/13/18 11/16/18 11/15/18 09:00 History Topiramate [Topamax TAB] 50 mg PO BID PRN 11/13/18 11/13/18 1 Week Ago History ~02/01/19 HYDROcodone/APAP 5-325 [[place] 1 each PO Q6HR PRN #30 tablet 11/17/18 Unknown Rx 5/325] Apixaban [Eliquis] 5 mg PO Q12HR 02/08/19 02/08/19 02/08/19 03:00 History Buprenorphine [Butrans] 02/08/19 02/05/19 07:44 History Active Medications: Generic Name Dose Route Start Last Admin Trade Name Freq PRN Reason Stop Dose Admin Acetaminophen 650 mg 05/20/19 10:33 Tylenol PO Q6H PRN Pain MILD(1-3)/Fever >100.5/WALKER Albuterol 2.5 mg 02/08/19 16:32 Proventil IH Q6HRT PRN Wheezing Arformoterol Tartrate 15 mcg 02/08/19 20:00 02/09/19 09:24 Brovana Nebu IH Not Given Q12HRT ARJUN Budesonide 0.5 mg 02/08/19 20:00 02/09/19 09:24 Pulmicort IH Not Given Q12HRT ARJUN Docusate Sodium 100 mg 02/08/19 22:00 02/08/19 21:48 Colace PO 100 mg BID ARJUN Administration Enoxaparin Sodium 40 mg 02/08/19 22:00 02/09/19 10:57 Lovenox SUB-Q 02/09/19 20:00 40 mg BID ARJUN Administration Sodium Chloride 1,000 mls @ 42 mls/hr 02/08/19 07:00 02/08/19 07:49 Nacl 0.9% 1000 Ml IV 42 mls/hr DIRECT ARJUN Administration Levothyroxine Sodium 100 mcg 02/09/19 06:00 02/09/19 10:56 Synthroid PO 100 mcg DAILY@0600 ARJUN Administration Metoprolol Succinate 50 mg 02/08/19 22:40 02/08/19 23:04 Toprol Xl PO 50 mg QDAY ARJUN Administration Oxycodone/Acetaminophen 1 tab 02/08/19 15:30 02/09/19 11:02 Percocet 5/325 PO 1 tab Q6H PRN Administration Pain, Moderate (4-6) Quetiapine Fumarate 25 mg 02/08/19 22:45 02/08/19 23:08 Seroquel PO 25 mg BID ARJUN Administration Sodium Chloride 10 ml 02/08/19 10:33 Sodium Chloride Flush Syringe 10 Ml IV PRN PRN LINE FLUSH Tiotropium [place] 1 puff 02/09/19 10:00 02/09/19 09:24 Spiriva IH Not Given QDAY ARJUN Topiramate 50 mg 02/08/19 16:25 Topamax PO Q12HR PRN MIGRANES
== END 2019-02-09 15:45 | disposition short-term general hospital (02) | DRG 254 ==
LOC: CATHLABREC 06:30 → OB 08:27
PROVIDERS: ADMIT Surgery; ATTEND Surgery
PROC: 06H03DZ Insertion of Intraluminal Device into Inferior Vena Cava, Percutaneous Approach (ICD-10-PCS; principal; 2019-02-09)
PROC: B549ZZA Ultrasonography of Inferior Vena Cava, Guidance (ICD-10-PCS; 2019-02-09)
PROC: B5191ZA Fluoroscopy of Inferior Vena Cava using Low Osmolar Contrast, Guidance (ICD-10-PCS; 2019-02-09)
DX: I82.409 Acute embolism and thrombosis of unspecified deep veins of unspecified lower extremity (principal); C50.919 Malignant neoplasm of unspecified site of unspecified female breast; I50.9 Heart failure, unspecified; F41.9 Anxiety disorder, unspecified; F32.9 Major depressive disorder, single episode, unspecified; E03.9 Hypothyroidism, unspecified; Z87.891 Personal history of nicotine dependence; Z95.810 Presence of automatic (implantable) cardiac defibrillator; Z91.041 Radiographic dye allergy status; Z79.899 Other long term (current) drug therapy
CPT/HCPCS: 36415; 37191; 37252; 80048; 85025; 85610; 85730; G0378; C1753; C1880; J1170; J1200; J1644; J1650; J2704; J7030